=== PATIENT | female | born 2000 | race Two or more races ===

== ENCOUNTER 2023-09-09 21:58 | Observation (INO) | payer MEDICAID ==
[~2023-09-09] VITALS: Ht 170.2 cm; Wt 62.6 kg
[2023-09-09 22:41] LABS: Fern Testing Negative
== END 2023-09-09 23:11 | disposition home or self-care (01) ==
LOC: LDRP 21:58
PROVIDERS: ADMIT Obstetrics & Gynecology; ATTEND Obstetrics & Gynecology
DX: O42.913 Preterm premature rupture of membranes, unspecified as to length of time between rupture and onset of labor, third trimester (principal); Z3A.35 35 weeks gestation of pregnancy
CPT/HCPCS: 59025; 81002; 84112; 94760; G0378; Q0114

== ENCOUNTER 2023-10-14 13:00 | Inpatient (IN) | payer MEDICAID ==
[~2023-10-14] VITALS: Ht 170.2 cm; Wt 66.2 kg
[2023-10-14] MEDS ORDERED: PREN-96 PO (13:16)
[2023-10-14 15:25] LABS: Basophils # (auto) 0 10 ^3/uL (0-0.2); Basophils % (auto) 0.5 % (0.0-2.0); Eosinophils # (auto) 0 10 ^3/uL (0-0.8); Eosinophils % (auto) 0.7 % (0.0-7.0); Hematocrit 35.4 % (36.0-46.0); Hemoglobin 12.1 g/dL (12.2-16.2); Lymphocytes # (auto) 1.5 10 ^3/uL (0.4-5.4); Lymphocytes % (auto) 24.5 % (10.0-50.0); Mean Corpuscular Hemoglobin 32.6 pg (28.0-32.0); Mean Corpuscular Hgb Conc. 34.1 g/dL (32.0-36.0); Mean Corpuscular Volume 95.5 fL (80.0-100.0); Monocytes # (auto) 0.4 10 ^3/uL (0-1.3); Monocytes % (auto) 6.5 % (0.0-12.0); Neutrophils # (auto) 4.1 10 ^3/uL (1.6-8.6); Neutrophils % (auto) 67.8 % (37.0-80.0); Nucleated Red Blood Cells % 0.2 %; Red Cell Distribution Width 14.5 % (11.8-14.3)
[2023-10-14 15:36] LABS: Urine Bacteria FEW /hpf (None Seen); Urine Blood TRACE /uL (Negative); Urine Clarity Clear (Clear); Urine Color Yellow (Yellow); Urine Hyaline Cast FEW /lpf (0 - 2); Urine Protein, UAD 3+ (Negative); Urine Specific Gravity 1.015 (1.001-1.035); Urine Urobilinogen Normal (Negative); Urine WBC 3 /hpf (0 - 5); Urine pH 6.5 (5.0-9.0)
[2023-10-14 15:45] LABS: INR 0.97 (0.9-1.15); Partial Thromboplastin Time 27.6 SEC (24.5-34.5); Prothrombin Time 10.3 sec (9.3-11.8)
[2023-10-14 15:49] LABS: Creatinine, Urine 100.97 mg/dL (30.0-125.0)
[2023-10-14 15:51] LABS: Alanine Aminotransferase 16 U/L (7-40); Albumin 3.2 g/dL (3.2-4.8); Alkaline Phosphatase 258 U/L (46-116); Anion Gap 9 (5-15); Aspartate Aminotransferase 20 U/L (13-40); BUN/Creatinine Ratio 12.7 (10.0-20.0); Bilirubin, Total 0.6 mg/dL (0.2-1.0); Blood Urea Nitrogen 8 mg/dL (9-23); Calcium 8.4 mg/dL (8.7-10.4); Carbon Dioxide 20 mmol/L (20-30); Chloride 107 mmol/L (98-107); Glucose 98 mg/dL (74-106); Potassium 3.8 mmol/L (3.5-5.1); Sodium 136 mmol/L (136-145); Total Protein 5.4 g/dL (5.7-8.2); Uric Acid 6.7 mg/dL (3.1-7.8)
[2023-10-14 15:52] LABS: Urine Protein/Creatinine Ratio 4.73
[2023-10-14] MEDS ORDERED: WITCH HAZEL-GLYCERIN PAD TOP PRN (16:30)
[2023-10-14] MEDS ORDERED: PHISODERM TOP SOLN 240ML BTL TOP PRN (16:30)
[2023-10-14] MEDS ORDERED: DERMOPLAST 60ML BOTTLE TOP PRN (16:30)
[2023-10-14] MEDS ORDERED: BUTORPHANOL TARTRATE 2 MG/1 ML VIAL IV PRN ×2 (16:30)
[2023-10-14] MEDS ORDERED: LIDOCAINE 2%HCL (LOCAL ANESTH.) INJ 20ML MDV IJ PRN (16:30)
[2023-10-14] MEDS: LABETALOL HCL 200 MG TAB PO SCH (18:16)
[2023-10-14] MEDS: LACTATED RINGER'S 1,000 ML IV SCH (18:18)
[2023-10-14] MEDS: miSOPROStol 50 MCG per PRE-CUT 1/2 TAB PO PRN (18:34)
[2023-10-15] MEDS ORDERED: TERBUTALINE SULFATE 1 MG/ML 1ML VIAL SC PRN (14:00)
[2023-10-15] MEDS: ePHEDrine SULFATE 50 MG/ML AMP ONE (14:44)
[2023-10-15] MEDS ORDERED: ePHEDrine SULFATE 50 MG/ML AMP IV ONE (14:45)
[2023-10-15] MEDS: LACTATED RINGER'S 1,000 ML IV ONE (14:45)
[2023-10-15] MEDS: ROPIVACAINE HCL 200 ML ONE (15:00)
[2023-10-15] MEDS: LACT. RINGERS/OXYTOCIN 20UNITS 1,000 ML IV SCH (15:49)
[2023-10-15] MEDS: LACT. RINGERS/OXYTOCIN 20UNITS 500 ML IV ONE ×2 (21:14→21:15)
[2023-10-16] VITALS (8 sets, daily range): BP systolic 115–131; BP diastolic 71–86; PULSE 78–84; RESP 16–18; TEMP 98.1–98.7; O2SAT 96–98
[2023-10-16] MEDS: MEASLES, MUMPS & RUBELLA VAC(MMRII) 0.5ML SC ONE (03:30)
[2023-10-16 04:31] LABS: Basophils # (auto) 0 10 ^3/uL (0-0.2); Basophils % (auto) 0.1 % (0.0-2.0); Eosinophils # (auto) 0 10 ^3/uL (0-0.8); Eosinophils % (auto) 0.1 % (0.0-7.0); Hematocrit 30.4 % (36.0-46.0); Hemoglobin 10.2 g/dL (12.2-16.2); Lymphocytes # (auto) 0.9 10 ^3/uL (0.4-5.4); Lymphocytes % (auto) 7.1 % (10.0-50.0); Mean Corpuscular Hemoglobin 32.3 pg (28.0-32.0); Mean Corpuscular Hgb Conc. 33.6 g/dL (32.0-36.0); Monocytes # (auto) 0.7 10 ^3/uL (0-1.3); Monocytes % (auto) 5.6 % (0.0-12.0); Neutrophils # (auto) 10.6 10 ^3/uL (1.6-8.6); Neutrophils % (auto) 87.1 % (37.0-80.0); Red Blood Cells 3.17 10^6/uL (4.0-5.20); Red Cell Distribution Width 14.5 % (11.8-14.3); White Blood Cell 12.1 10^3/uL (4.4-10.8)
[2023-10-16 04:48] LABS: Alanine Aminotransferase 16 U/L (7-40); Albumin 2.5 g/dL (3.2-4.8); Alkaline Phosphatase 193 U/L (46-116); Anion Gap 8 (5-15); Aspartate Aminotransferase 27 U/L (13-40); BUN/Creatinine Ratio 12.5 (10.0-20.0); Bilirubin, Total 0.7 mg/dL (0.2-1.0); Blood Urea Nitrogen 7 mg/dL (9-23); Calcium 8.1 mg/dL (8.7-10.4); Carbon Dioxide 20 mmol/L (20-30); Chloride 110 mmol/L (98-107); Glucose 117 mg/dL (74-106); Potassium 3.9 mmol/L (3.5-5.1); Sodium 138 mmol/L (136-145); Total Protein 4.2 g/dL (5.7-8.2)
[2023-10-16] MEDS ORDERED: IBUP-1455 PO (22:56)
[2023-10-16] MEDS ORDERED: DOCU-94 PO (22:56)
[2023-10-16] MEDS ORDERED: FER325T PO (22:56)
[2023-10-17 03:00] VITALS: BP 121/81; PULSE 81; RESP 20; TEMP 98.2; O2SAT 100
[2023-10-17 07:00] VITALS: BP 144/91; PULSE 71; RESP 18; TEMP 98; O2SAT 95
[2023-10-17] MEDS: IBUPROFEN 800 MG TAB PO PRN (07:15)
== END 2023-10-17 11:45 | disposition home or self-care (01) | DRG 560 ==
LOC: LDRP 13:00 → OBSVTOIN 16:15 → LDRP 16:16
PROVIDERS: ADMIT Obstetrics & Gynecology; ATTEND Obstetrics & Gynecology
PROC: 10E0XZZ Delivery of Products of Conception, External Approach (ICD-10-PCS; principal; 2023-10-15)
PROC: 0KQM0ZZ Repair Perineum Muscle, Open Approach (ICD-10-PCS; 2023-10-15)
PROC: 3E0DXGC Introduction of Other Therapeutic Substance into Mouth and Pharynx, External Approach (ICD-10-PCS; 2023-10-15)
PROC: 3E0R3BZ Introduction of Anesthetic Agent into Spinal Canal, Percutaneous Approach (ICD-10-PCS; 2023-10-15)
PROC: 00HU33Z Insertion of Infusion Device into Spinal Canal, Percutaneous Approach (ICD-10-PCS; 2023-10-15)
DX: O14.04 Mild to moderate pre-eclampsia, complicating childbirth (principal); Z37.0 Single live birth; D62 Acute posthemorrhagic anemia; O71.4 Obstetric high vaginal laceration alone; O90.81 Anemia of the puerperium; Z3A.40 40 weeks gestation of pregnancy
CPT/HCPCS: 36415; 59025; 59409; 62282; 76818; 80053; 81001; 81002; 82570; 84156; 84550; 85025; 85610; 85730; 86592; 86803; 86850; 86900; 86901; 94760; 96360; 96361; 96365; 96366; G0378; J2590